=== PATIENT | female | born 1940 | race Caucasian/White ===

== ENCOUNTER 2017-05-04 14:33 | Emergency (ER) | payer MEDICARE, BC ==
--- NOTE | 2017-05-04 14:46 | EDM.PDOC ---
ED HPI GENERAL MEDICAL PROBLEM - General Chief Complaint: General Stated Complaint: LEFT FINGER INJURY 05/04 Time Seen by Provider: 05/04/17 14:43 Source of Information: Reports: Patient, Family () History Limitations: Reports: No Limitations - History of Present Illness INITIAL COMMENTS - FREE TEXT/NARRATIVE: 76 yo white female c/o left middle finger deformity after fall onto step 15mins. ago Onset: Today Onset Date: 05/04/17 Onset Time: 14:15 Duration: Minutes: Location: Reports: Upper Extremity, Left Quality: Reports: Ache Severity: Moderate Improves with: Reports: None Worsens with: Reports: None Associated Symptoms: Reports: No Other Symptoms Left Hand Pain Score (Numeric/FACES): 8 - Related Data Allergies Allergy/AdvReac Type Severity Reaction Status Date / Time latex Allergy Intermediate Rash Verified 05/04/17 14:55 Sulfa (Sulfonamide Allergy Intermediate Rash Verified 05/04/17 14:55 Antibiotics) Home Meds: Home Meds Aspirin [[place] Aspirin] 1 tab PO BEDTIME 05/04/17 [History] Fenofibrate [Fenofibrate] 1 tab PO BEDTIME 05/04/17 [History] Ibuprofen 1 tab PO ASDIRECTED PRN 05/04/17 [History] LORazepam 1 tab PO ASDIRECTED PRN 05/04/17 [History] Lisinopril [Lisinopril] 1 tab PO DAILY 05/04/17 [History] Review of Systems - Review of Systems Review Of Systems: See Below Constitutional: Reports: No Symptoms Eyes: Reports: No Symptoms Ears: Reports: No Symptoms Nose: Reports: No Symptoms Mouth/Throat: Reports: No Symptoms Respiratory: Reports: No Symptoms Cardiovascular: Reports: No Symptoms GI/Abdominal: Reports: No Symptoms Genitourinary: Reports: No Symptoms Musculoskeletal: Reports: Hand Pain, Other (wrist) Skin: Reports: No Symptoms Neurological: Reports: No Symptoms Psychiatric: Reports: No Symptoms ED EXAM, GENERAL - Physical Exam Exam: See Below Exam Limited By: No Limitations General Appearance: Alert, WD/WN, No Apparent Distress Ears: Normal External Exam Nose: Normal Inspection Throat/Mouth: Normal Inspection Head: Atraumatic Neck: Normal Inspection Respiratory/Chest: No Respiratory Distress Cardiovascular: Normal Peripheral Pulses GI/Abdominal: Normal Bowel Sounds Back Exam: Normal Inspection, Full Range of Motion Extremities: Other (left 3rd finger w/ deformity and left wrist tenderness) Neurological: Alert, Oriented, CN II-XII Intact Psychiatric: Normal Affect Skin Exam: Warm, Dry, Intact, Normal Color Lymphatic: No Adenopathy ED TRAUMA EXTREMITY PROCEDURES - Splinting Left 3rd Digit Splint Site: Left 3rd finger and left wrist Pre-Procedure NV Status: Normal Post-Procedure NV Status: Normal Splint Design: Volar Applied & Form Fitted By: Nurse Provider Post-Splint Application NV Check: NV Status Normal, Good Position Complications: No Course - Vital Signs Last Recorded V/S: Last Vital Signs Temp 36.6 C 05/04/17 14:36 Pulse 85 05/04/17 14:36 Resp 18 05/04/17 14:36 BP 138/59 L 05/04/17 14:36 Pulse Ox 96 05/04/17 14:36 - Orders/Labs/Meds Orders: Active Orders 24 hr Category Date Time Status Hand 2V Lt [CR] Urgent Exams 05/04/17 15:08 Taken Hand 2V Lt [CR] Urgent Exams 05/04/17 15:20 Taken Wrist 2V Lt [CR] Urgent Exams 05/04/17 15:20 Ordered Departure - Departure Time of Disposition: 15:52 Disposition: Home, Self-Care 01 Condition: Good Clinical Impression: Fracture of third metacarpal bone of left hand Qualifiers: Encounter type: initial encounter Fracture type: closed Metacarpal location: base Fracture alignment: nondisplaced Qualified Code(s): S62.343A - Nondisplaced fracture of base of third metacarpal bone, left hand, initial encounter for closed fracture Fracture, radius, distal Qualifiers: Encounter type: initial encounter Fracture type: closed Fracture morphology: unspecified fracture morphology Laterality: left Qualified Code(s): S52.502A - Unspecified fracture of the lower end of left radius, initial encounter for closed fracture Dislocation, finger closed Qualifiers: Encounter type: initial encounter Qualified Code(s): S63.259A - Unspecified dislocation of unspecified finger, initial encounter - Discharge Information Referrals: Lexie Montilla PA-C [Primary Care Provider] - Forms: ED Department Discharge Additional Instructions: Rest Wear splint as advised F/U w/ [facility] ( Call for APPT.) For Pain : TRAMADOL 50mg TID # 30 - My Orders Last 24 Hours: My Active Orders 05/04/17 15:08 Hand 2V Lt [CR] Urgent 05/04/17 15:20 Hand 2V Lt [CR] Urgent Wrist 2V Lt [CR] Urgent - Assessment/Plan Last 24 Hours: My Active Orders 05/04/17 15:08 Hand 2V Lt [CR] Urgent 05/04/17 15:20 Hand 2V Lt [CR] Urgent Wrist 2V Lt [CR] Urgent
--- NOTE | 2017-05-04 14:57 | CR ---
Clinical history: 76-year-old female deformity middle finger (injury left hand). Interpretation: Dislocation middle phalanx at the PIP joint, without associated fracture, middle (thi rd) finger left hand. 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 No foreign bodies.
--- NOTE | 2017-05-04 15:53 | CR ---
Clinical history: 76-year-old female post reduction PIP joint dislocation middle finger left hand. Interpretation: 1. Soft tissue swelling around the PIP joint. 2. Satisfactory relocation middle phalanx at the PIP joint and... tiny focal cortical lucency at poin t of probable sliver like avulsion, identified on acute injury film, radial aspect head of the proxim al phalanx middle finger. 3. Note: Nondisplaced corner avulsion fracture, ulnar aspect, base of the proximal phalanx. 4. Chronic arthritic changes interphalangeal DIP joints. 5. Old fragment adjacent to the ulnar styloid subtle irregular lucency base of the radial styloid but no definite acute left wrist fracture or dislocation. 6. No foreign bodies.
--- NOTE | 2017-05-04 16:18 | CR ---
Clinical history: 76-year-old female injured left hand (deformity middle finger) Interpretation: Pronounced soft tissue swelling around the PIP joint, dorsal radial dislocation middl e phalanx at the PIP joint third finger with associated tiny bony avulsion fracture fragment off the radial aspect distal end of the proximal phalanx. Note: Additional nondisplaced acute avulsion fracture ulnar corner base of the proximal phalanx middl e finger left hand. No sign of other fracture or dislocation left hand. No foreign bodies.
== END 2017-05-04 16:11 | disposition home or self-care (01) ==
LOC: DL.ED 14:33
DX: S62.343A Nondisplaced fracture of base of third metacarpal bone, left hand, initial encounter for closed fracture (principal); S52.502A Unspecified fracture of the lower end of left radius, initial encounter for closed fracture; S63.283A Dislocation of proximal interphalangeal joint of left middle finger, initial encounter; W10.9XXA Fall (on) (from) unspecified stairs and steps, initial encounter; Z88.2 Allergy status to sulfonamides; Z91.040 Latex allergy status; Z79.82 Long term (current) use of aspirin
CPT/HCPCS: 26770; 73120-LT; 99283; 99284

== ENCOUNTER 2017-09-24 18:00 | Emergency (ER) | payer MEDICARE, BC ==
--- NOTE | 2017-09-24 19:11 | EDM.PDOC ---
ED HPI GENERAL MEDICAL PROBLEM - General Chief Complaint: ENT Problem Stated Complaint: [id number] SINUS AND HEAD PAIN Time Seen by Provider: 09/24/17 19:02 Source of Information: Reports: Patient History Limitations: Reports: No Limitations - History of Present Illness INITIAL COMMENTS - FREE TEXT/NARRATIVE: sinus congestion, sore throat for 2 days , right anterior jaw tender where it had been wired from remote surgery. Hx of many sinus infections n past. Tried to get in to clinic today but unable. Right ear pain also. Nare Pain Score (Numeric/FACES): 9 - Related Data Allergies Allergy/AdvReac Type Severity Reaction Status Date / Time latex Allergy Intermediate Rash Verified 09/24/17 18:25 Sulfa (Sulfonamide Allergy Intermediate Rash Verified 09/24/17 18:25 Antibiotics) Home Meds: Home Meds Aspirin [[place] Aspirin] 1 tab PO BEDTIME 05/04/17 [History] Fenofibrate [Fenofibrate] 1 tab PO BEDTIME 05/04/17 [History] Ibuprofen 1 tab PO ASDIRECTED PRN 05/04/17 [History] LORazepam 1 tab PO ASDIRECTED PRN 05/04/17 [History] Lisinopril [Lisinopril] 1 tab PO DAILY 05/04/17 [History] Acetaminophen [Tylenol Extra Strength] 1,000 mg PO Q6H 09/24/17 [History] traMADol [Ultram] 50 mg PO Q6HR 09/24/17 [History] Past Medical History HEENT History: Reports: Impaired Vision Cardiovascular History: Reports: High Cholesterol, Hypertension Respiratory History: Reports: None Gastrointestinal History: Reports: None Genitourinary History: Reports: None OPERATING ROOM ORDERLY History: Reports: None Musculoskeletal History: Reports: None Neurological History: Reports: None Psychiatric History: Reports: None Endocrine/Metabolic History: Reports: None Hematologic History: Reports: None Immunologic History: Reports: None Oncologic (Cancer) History: Reports: None Dermatologic History: Reports: None - Infectious Disease History Infectious Disease History: Reports: None - Past Surgical History Head Surgeries/Procedures: Reports: None Social & Family History - Family History Family Medical History: Noncontributory - Tobacco Use Smoking Status *Q: Never Smoker Second Hand Smoke Exposure: No - Caffeine Use Caffeine Use: Reports: Coffee, Tea - Recreational Drug Use Recreational Drug Use: No ED ROS ENT - Review of Systems Review Of Systems: See Below Constitutional: Denies: Fever, Chills HEENT: Reports: Sinus Problem, Throat Pain, Other (right lower jaw sore and swollen) Respiratory: Reports: No Symptoms Cardiovascular: Reports: No Symptoms GI/Abdominal: Reports: No Symptoms Musculoskeletal: Reports: No Symptoms Skin: Reports: No Symptoms Neurological: Reports: No Symptoms Psychiatric: Reports: No Symptoms ED EXAM, ENT - Physical Exam Exam: See Below Exam Limited By: No Limitations General Appearance: Alert, No Apparent Distress Eye Exam: Bilateral Eye: EOMI Ears: Normal External Exam, Normal TMs Nose: Normal Inspection Mouth/Throat: Tonsillar Erythema, Other (right anterior jaw tender with palpation) Head: Atraumatic, Normocephalic Neck: Lymphadenopathy (L), Lymphadenopathy (R) Respiratory/Chest: No Respiratory Distress, Lungs Clear, Normal Breath Sounds Cardiovascular: Normal Peripheral Pulses, Regular Rate, Rhythm GI/Abdominal: Normal Bowel Sounds, Soft, Non-Tender Extremities: Normal Range of Motion Neurological: Alert, Oriented, Normal Cognition Skin: Warm, Dry, Intact, Normal Color Course - Vital Signs Last Recorded V/S: Last Vital Signs Temp 98.6 F 09/24/17 18:19 Pulse 76 09/24/17 18:19 Resp 18 09/24/17 18:19 BP 151/69 H 09/24/17 18:19 Pulse Ox 98 09/24/17 18:19 - Orders/Labs/Meds Orders: Active Orders 24 hr Category Date Time Status CULTURE STREP A CONFIRMATION [RM] Stat Lab 09/24/17 19:05 Results STREP SCRN A RAPID W CULT CONF [RM] Stat Lab 09/24/17 19:05 Results Meds: Medications Discontinued Medications Generic Name Dose Route Start Last Admin Trade Name Freq PRN Reason Stop Dose Admin Amoxicillin/Clavulanate Potassium 1 tab 09/24/17 19:47 09/24/17 19:51 Augmentin 875 Mg/125 Mg PO 09/24/17 19:48 1 tab ONETIME ONE Administration Departure - Departure Time of Disposition: 19:49 Disposition: Home, Self-Care 01 Condition: Good Clinical Impression: Pain, dental Sinusitis, acute Qualifiers: Sinusitis location: maxillary Recurrence: non-recurrent Qualified Code(s): J01.00 - Acute maxillary sinusitis, unspecified - Discharge Information Instructions: Sinusitis, Adult, [id number] Referrals: PCP,None [Primary Care Provider] - Forms: ED Department Discharge Additional Instructions: Follow up in clinic this week Follow up with dentist 2-3 days Tylenol or tramadol per home orders for discomfort humidification augmentin 875/125 one twice daily for 10 days - My Orders Last 24 Hours: My Active Orders 09/24/17 19:05 CULTURE STREP A CONFIRMATION [RM] Stat STREP SCRN A RAPID W CULT CONF [RM] Stat - Assessment/Plan Last 24 Hours: My Active Orders 09/24/17 19:05 CULTURE STREP A CONFIRMATION [RM] Stat STREP SCRN A RAPID W CULT CONF [RM] Stat
[2017-09-24] MEDS ORDERED: Amoxicillin/Clavulanate K 875-125 MG Tab PO ONE (19:47)
== END 2017-09-24 19:56 | disposition home or self-care (01) ==
LOC: DL.ED 18:00
DX: J01.00 Acute maxillary sinusitis, unspecified (principal); K08.89 Other specified disorders of teeth and supporting structures; E78.00 Pure hypercholesterolemia, unspecified; I10 Essential (primary) hypertension; Z91.040 Latex allergy status; Z88.2 Allergy status to sulfonamides; Z79.899 Other long term (current) drug therapy
CPT/HCPCS: 87081; 87430; 99283; A9270

== ENCOUNTER 2024-12-03 06:17 | Day surgery (SDC) | payer MEDICARE, BC ==
[~2024-12-03 06:17] MED LIST: Proparacaine 0.5% Ophth Soln 15 ML Bottle ONE
[2024-12-03] MEDS ORDERED: Sodium Chloride 0.9% 10 ML Syringe IV ONE (06:18)
[2024-12-03] MEDS ORDERED: Dexamethasone 4 MG/ML SDV IV ONE (06:18)
[2024-12-03] MEDS ORDERED: Midazolam 1 MG/ML 2 ML SDV IV ONE (06:18)
[2024-12-03] MEDS ORDERED: Ondansetron 4 MG/2 ML SDV IVPUSH PRN (08:00)
[2024-12-03] MEDS ORDERED: VANCOmycin 500 MG SDV EYELF ONE (08:00)
[2024-12-03] MEDS ORDERED: Acetaminophen/Codeine 300-30 MG Tab PO PRN (08:00)
[2024-12-03] MEDS ORDERED: Lidocaine 1% 30 ML SDV INJECT ONE (08:00)
[2024-12-03] MEDS: Proparacaine 0.5% Ophth Soln 15 ML Bottle EYELF ONE ×2 (08:02→09:55)
[2024-12-03] MEDS: Moxifloxacin 0.5% Ophth Soln 3 ML Bottle EYELF ONE (08:03)
[2024-12-03] MEDS: Povidone-Iodine 5% Sterile Ophth Soln 30 ML Bottle EYELF ONE ×2 (08:04→09:56)
[2024-12-03] MEDS: Tropicamide 1% Ophth Soln 15 ML Bottle EYELF ONE (08:05)
[2024-12-03] MEDS: Timolol Maleate 0.5% Ophth Soln 5 ML Bottle EYELF ONE (08:06)
[2024-12-03] MEDS: Phenylephrine 10% Ophth Soln 5 ML Bot EYELF ONE (08:06)
[2024-12-03] MEDS: Cataract Ophth Solution EYELF ONE (08:07)
[2024-12-03] MEDS ORDERED: Dexamethasone 4 MG/ML SDV ONE (09:03)
[2024-12-03] MEDS: Apraclonidine 0.5% Ophth Soln 5 ML Bot EYELF ONE (09:56)
[2024-12-03] MEDS: Diclofenac Sodium 0.1% Ophth Soln 5 ML Bottle EYELF ONE (09:57)
[2024-12-03] MEDS: Tobramycin 0.3% Ophth Oint 3.5 GM Tube EYELF ONE (09:58)
[2024-12-03] MEDS: Lidocaine 1% 30 ML SDV INJECT ONE (09:58)
[2024-12-03] MEDS: VANCOmycin 500 MG SDV EYELF ONE (09:59)
[2024-12-03] MEDS: Acetaminophen 325 MG Tab PO PRN (10:21)
== END 2024-12-03 11:00 | disposition home or self-care (01) ==
LOC: DL.SDS 06:17
PROVIDERS: ATTEND Ophthalmology
DX: H25.812 Combined forms of age-related cataract, left eye (principal); I10 Essential (primary) hypertension; Z88.2 Allergy status to sulfonamides; Z79.82 Long term (current) use of aspirin; Z79.899 Other long term (current) drug therapy; Z91.040 Latex allergy status
CPT/HCPCS: 66984; A9270; J2003; J3370; 00142; 99100; J1100; J2250; J3490; V2632

== ENCOUNTER 2024-12-17 08:57 | Day surgery (SDC) | payer MEDICARE, BC ==
[2024-12-17] MEDS ORDERED: Dexamethasone 4 MG/ML SDV IV ONE (08:58)
[2024-12-17] MEDS ORDERED: Midazolam 1 MG/ML 2 ML SDV IV ONE (08:58)
[2024-12-17] MEDS ORDERED: Sodium Chloride 0.9% 10 ML Syringe IV ONE (08:58)
[2024-12-17] MEDS: Proparacaine 0.5% Ophth Soln 15 ML Bottle EYERT ONE ×2 (09:43→10:36)
[2024-12-17] MEDS: Moxifloxacin 0.5% Ophth Soln 3 ML Bottle EYERT ONE (09:44)
[2024-12-17] MEDS: Phenylephrine 10% Ophth Soln 5 ML Bot EYERT PRN (09:46)
[2024-12-17] MEDS: Povidone-Iodine 5% Sterile Ophth Soln 30 ML Bottle EYERT ONE ×2 (09:46→10:36)
[2024-12-17] MEDS: Timolol Maleate 0.5% Ophth Soln 5 ML Bottle EYERT ONE (09:47)
[2024-12-17] MEDS: Cataract Ophth Solution EYERT ONE (09:47)
[2024-12-17] MEDS: Tropicamide 1% Ophth Soln 15 ML Bottle EYERT ONE (09:47)
[2024-12-17] MEDS ORDERED: Ondansetron 4 MG/2 ML SDV IVPUSH PRN (10:30)
[2024-12-17] MEDS ORDERED: Acetaminophen/Codeine 300-30 MG Tab PO PRN (10:30)
[2024-12-17] MEDS ORDERED: Lidocaine 1% 30 ML SDV INJECT ONE (10:30)
[2024-12-17] MEDS ORDERED: VANCOmycin 500 MG SDV EYERT ONE (10:30)
[2024-12-17] MEDS: Tobramycin 0.3% Ophth Oint 3.5 GM Tube EYERT ONE (10:37)
[2024-12-17] MEDS: Apraclonidine 0.5% Ophth Soln 5 ML Bot EYERT ONE (10:37)
[2024-12-17] MEDS: Diclofenac Sodium 0.1% Ophth Soln 5 ML Bottle EYERT ONE (10:37)
[2024-12-17] MEDS: Lidocaine 1% 30 ML SDV ONE (10:38)
[2024-12-17] MEDS: VANCOmycin 500 MG SDV EYERT ONE (10:38)
[2024-12-17] MEDS: Acetaminophen 325 MG Tab PO PRN (11:16)
== END 2024-12-17 12:01 | disposition home or self-care (01) ==
LOC: DL.SDS 08:57
PROVIDERS: ATTEND Ophthalmology
DX: H25.811 Combined forms of age-related cataract, right eye (principal); I10 Essential (primary) hypertension; E78.5 Hyperlipidemia, unspecified; Z79.899 Other long term (current) drug therapy; Z91.040 Latex allergy status; Z88.2 Allergy status to sulfonamides
CPT/HCPCS: 66984; A9270; J2003; J3370; J1100; J2250; J3490